=== PATIENT | female | born 1960 | race Caucasian/White ===

== ENCOUNTER 2018-09-14 13:46 | Outpatient (CLI) | payer OTHER | END 2018-09-14 13:47 | disposition home or self-care (01) | LOC: BICMAMMO 13:46 | PROVIDERS: ATTEND Obstetrics & Gynecology | DX: Z12.31 Encounter for screening mammogram for malignant neoplasm of breast (principal) | CPT/HCPCS: 77063; 77067 ==

== ENCOUNTER 2019-08-16 12:10 | Outpatient (CLI) | payer OTHER ==
--- NOTE | 2019-08-16 13:15 | MMO ---
Bilateral MAMMO Bilat Screen [facility]DI+LISET. CLINICAL HISTORY: Patient is 58 years old and is seen for screening. The patient has no family history of breast cancer. The patient has no personal history of cancer. The patient has a history of bilateral Breast reduction at age 48 - benign. VIEWS: The views performed were: bilateral craniocaudal with tomosynthesis and bilateral mediolateral oblique with tomosynthesis. FILMS COMPARED: The present examination has been compared to prior imaging studies performed at [facility] on 08/29/2016, 09/05/2016, 09/04/2017 and 09/14/2018. This study has been interpreted with the assistance of computer-aided detection. MAMMOGRAM FINDINGS: There are scattered fibroglandular densities. There is an area of architectural distortion seen in the upper-outer region of the left breast. In the right breast, there are no suspicious masses, calcifications or areas of architectural distortion. IMPRESSION: AREA OF ARCHITECTURAL DISTORTION IN THE LEFT BREAST REQUIRES ADDITIONAL EVALUATION. RECOMMEND DIAGNOSTIC MAMMOGRAM. ULTRASOUND MAY ALSO PROVE USEFUL AT RECALL. THE RESULTS OF THIS EXAM WERE SENT TO THE PATIENT. ACR BI-RADS Category 0 - Incomplete: Need additional imaging evaluation. [facility] will notify the patient of the need for additional imaging services. MAMMOGRAPHY NOTE: 1. A negative mammogram report should not delay a biopsy if a dominant of clinically suspicious mass is present. 2. Approximately 10% to 15% of breast cancers are not detected by mammography. 3. Adenosis and dense breasts may obscure an underlying neoplasm. Reported by: SUSIE ROWLEY MD Electonically Signed: [id number]
== END 2019-08-16 12:11 | disposition home or self-care (01) ==
LOC: BICMAMMO 12:10
PROVIDERS: ATTEND Obstetrics & Gynecology
DX: Z12.31 Encounter for screening mammogram for malignant neoplasm of breast (principal); Z98.890 Other specified postprocedural states; N64.59 Other signs and symptoms in breast
CPT/HCPCS: 77063; 77067

== ENCOUNTER 2019-08-28 09:36 | Outpatient (CLI) | payer OTHER ==
--- NOTE | 2019-08-28 10:28 | MMO ---
Left Breast MAMMO Unilat Diag DDI LT+LISET. CLINICAL HISTORY: Patient is 58 years old and is seen for diagnostic exam. The patient has no family history of breast cancer. The patient has no personal history of cancer. The patient has a history of bilateral Breast reduction at age 48 - benign. VIEWS: The views performed were: left craniocaudal spot compression with tomosynthesis; left mediolateral oblique spot compression with tomosynthesis; and left mediolateral with tomosynthesis. FILMS COMPARED: The present examination has been compared to prior imaging studies performed at [facility] on 09/04/2017, 09/14/2018, 08/16/2019 and 08/28/2019. This study has been interpreted with the assistance of computer-aided detection. MAMMOGRAM FINDINGS: There are scattered fibroglandular densities. There is an equal density, irregular mass measuring 9 millimeters with spiculated margins seen in the left breast at 1 o'clock. An irregular hypoechoic mass is seen in this region sonographically. IMPRESSION: MASS IN THE LEFT BREAST IS HIGHLY SUGGESTIVE OF MALIGNANCY. AN ULTRASOUND-GUIDED BREAST BIOPSY IS RECOMMENDED. RESULTS AND RECOMMENDATIONS DISCUSSED WITH THE PATIENT AND QUESTIONS ANSWERED. THE RESULTS OF THIS EXAM WERE SENT TO THE PATIENT. ACR BI-RADS Category 5 - Highly suggestive of malignancy - appropriate action should be taken MAMMOGRAPHY NOTE: 1. A negative mammogram report should not delay a biopsy if a dominant of clinically suspicious mass is present. 2. Approximately 10% to 15% of breast cancers are not detected by mammography. 3. Adenosis and dense breasts may obscure an underlying neoplasm. Reported by: SUSIE ROWLEY MD Electonically Signed: [id number]
--- NOTE | 2019-08-28 11:31 | ULT ---
LIMITED LEFT BREAST ULTRASOUND: 08/28/2019 PROVIDED CLINICAL HISTORY: Abnormal mammogram. TECHNIQUE: Limited sonographic interrogation of the left breast was performed in the 1 o'clock position, in the region of mammographic concern. FINDINGS: There is an irregular hypoechoic shadowing mass, measuring at least 8 mm, in the region of mammograph ic concern. IMPRESSION: BI-RADS category 5 - highly suggestive of malignancy. Ultrasound guided breast biopsy is recommended. Results and recommendations discussed with the patien t and questions answered. POS: OFF
== END 2019-08-28 09:37 | disposition home or self-care (01) ==
LOC: BICMAMMO 09:36
PROVIDERS: ATTEND Obstetrics & Gynecology
DX: N63.20 Unspecified lump in the left breast, unspecified quadrant (principal)
CPT/HCPCS: G0279

== ENCOUNTER → 2019-08-29 | Day surgery (SDC) | payer OTHER ==
--- NOTE | 2019-08-29 11:09 | MMO ---
Left Breast MAMMO Unilat Diag DDI LT. CLINICAL HISTORY: Patient is 58 years old and is seen for diagnostic exam. The patient has a history of bilateral Breast reduction at age 48 - benign. VIEWS: The views performed were: . FILMS COMPARED: The present examination has been compared to prior imaging studies performed at [facility] on 09/14/2018, 08/16/2019 and 08/28/2019. This study has been interpreted with the assistance of computer-aided detection. MAMMOGRAM FINDINGS: There are scattered fibroglandular densities. There are 2 left biopsy clips. IMPRESSION: FINDING IN THE LEFT BREAST IS CONFIRMED UTILIZING POST PROCEDURE MAMMOGRAM. THE RESULTS OF THIS EXAM WERE SENT TO THE PATIENT. MAMMOGRAPHY NOTE: 1. A negative mammogram report should not delay a biopsy if a dominant of clinically suspicious mass is present. 2. Approximately 10% to 15% of breast cancers are not detected by mammography. 3. Adenosis and dense breasts may obscure an underlying neoplasm. Reported by: DELGADO ANGUIANO MD Electonically Signed: [id number]
--- NOTE | 2019-08-29 14:47 | ULT ---
ULTRASOUND GUIDED BIOPSY OF THE LEFT BREAST: HISTORY: Left breast mass noted on screening and diagnostic mammography as well as diagnostic ultrasound. COMPARISON: 08/16/2019, 08/28/2019. FINDINGS: Successful left breast biopsy. Two separate biopsies were performed. The 1st biopsy was performed a t the 1 o'clock position. The 2nd biopsy was performed at the 3 o'clock position. Both biopsies were successful. Two separate biopsy clips were placed. The S-shaped clip was placed at the 1 o'clock position and the ribbon shaped clip was placed at the 3 o'clock position. No immediate or postprocedure complications. TECHNIQUE: Consent was obtained to perform an ultrasound-guided biopsy of 2 separate lesions in the left breast. The left breast was prepped and draped in sterile fashion. 1% Lidocaine buffered with sodium bicar bonate was used to locally anesthetize 2 separate regions of the breast. Dermatomies were made in th e 1 and 3 o'clock positions. A total of three 14-gauge core biopsy samples were obtained at the 1 o' clock position. A total of three 14-gauge core biopsy samples were obtained at the 3 o'clock positio n. Postprocedure clips were placed. Hemostasis was achieved with manual pressure. Postprocedure ma mmogram was performed. IMPRESSION: Successful left breast biopsy with ultrasound guidance. Two separate lesions were biopsied. Final p athologic diagnosis is pending. The 1 o'clock lesion corresponds to the mammographic finding. The 3 o'clock lesion is not appreciated on the postprocedure mammogram. POS: OFF
== END ==
LOC: BICULT 09:17
PROVIDERS: ATTEND Obstetrics & Gynecology
PROC: 0H9U3ZX Drainage of Left Breast, Percutaneous Approach, Diagnostic (ICD-10-PCS; principal; 2019-08-29)
DX: C50.412 Malignant neoplasm of upper-outer quadrant of left female breast (principal); C50.812 Malignant neoplasm of overlapping sites of left female breast
CPT/HCPCS: 19083; 19084; 88305; 88341; 88342

== ENCOUNTER 2021-01-24 10:53 | Emergency (ER) | payer OTHER | END 2021-01-24 13:20 | disposition home or self-care (01) | LOC: ERS 10:53 | DX: M79.605 Pain in left leg (principal); Z79.899 Other long term (current) drug therapy | CPT/HCPCS: 93005 ==

== ENCOUNTER 2022-06-27 15:13 | Outpatient (CLI) | payer OTHER | END 2022-06-27 15:14 | disposition home or self-care (01) | LOC: BICULT 15:13 | PROVIDERS: ATTEND Internal Medicine Hematology & Oncology | DX: R22.2 Localized swelling, mass and lump, trunk (principal); C50.412 Malignant neoplasm of upper-outer quadrant of left female breast; Z90.13 Acquired absence of bilateral breasts and nipples ==

== ENCOUNTER 2022-10-12 14:15 | Outpatient (CLI) | payer OTHER | END 2022-10-12 14:16 | disposition home or self-care (01) | LOC: BICRAD 14:15 | PROVIDERS: ATTEND Chiropractor | DX: M54.2 Cervicalgia (principal); M47.812 Spondylosis without myelopathy or radiculopathy, cervical region | CPT/HCPCS: 72040 ==

== ENCOUNTER 2022-10-31 14:51 | Outpatient (CLI) | payer OTHER | END 2022-10-31 14:52 | disposition home or self-care (01) | LOC: BICCT 14:51 | PROVIDERS: ATTEND Nurse Practitioner Adult Health | DX: E78.5 Hyperlipidemia, unspecified (principal); I25.10 Atherosclerotic heart disease of native coronary artery without angina pectoris | CPT/HCPCS: 75571 ==